=== PATIENT | female | born 1975 | race Caucasian/White ===

== ENCOUNTER 2019-08-13 15:10 | Emergency (ER) | payer SELFPAY ==
[2019-08-13 16:24] LABS: ABSOLUTE BASOPHILS # (AUTO) 0.1 10^3/uL (0.0-0.2); ABSOLUTE EOSINOPHILS # (AUTO) 0.2 10^3/uL (0.0-0.6); ABSOLUTE NEUT (AUTO) 8.8 10^3/uL (1.7-8.2); BASOPHILS % (AUTO) 0.4 % (0-2); EOSINOPHILS % (AUTO) 1.5 % (0-6); HEMOGLOBIN 12.6 g/dL (12.0-15.5); LYMPHOCYTES % (AUTO) 22.7 % (13-45); MEAN CORPUSCULAR HEMOGLOBIN 25.4 pg (27.0-33.4); MEAN CORPUSCULAR HGB CONC 32.3 g/dL (32.0-36.0); MEAN CORPUSCULAR VOLUME 79 fl (80-97); MONOCYTES % (AUTO) 7.6 % (3-13); PLATELET COUNT 344 10^3/uL (150-450); RED BLOOD COUNT 4.96 10^6/uL (3.72-5.28); RED CELL DISTRIBUTION WIDTH 17.5 % (11.5-14.0); SEGMENTED NEUTROPHILS % (AUTO) 67.8 % (42-78); TOTAL CELLS COUNTED % (AUTO) 100 %
[2019-08-13 16:28] LABS: APPEARANCE,URINE SLIGHTLY-CLOUDY; BILIRUBIN,URINE NEGATIVE (NEGATIVE); COLOR,URINE YELLOW; GLUCOSE, URINE NEGATIVE (NEGATIVE); KETONES,URINE NEGATIVE (NEGATIVE); LEUKOCYTE ESTERASE,URINE NEGATIVE (NEGATIVE); NITRITE,URINE NEGATIVE (NEGATIVE); PROTEIN,URINE NEGATIVE (NEGATIVE); URINE SPECIFIC GRAVITY 1.006; UROBILINOGEN,URINE NEGATIVE mg/dL (<2.0)
[2019-08-13 16:38] LABS: ALKALINE PHOSPHATASE 75 U/L (38-126); ANION GAP 11 (5-19); ASPARTATE AMINO TRANSFERASE 20 U/L (14-36); BILIRUBIN,DIRECT 0.1 mg/dL (0.0-0.4); BILIRUBIN,TOTAL 0.2 mg/dL (0.2-1.3); BLOOD UREA NITROGEN 8 mg/dL (7-20); CALCIUM 10.1 mg/dL (8.4-10.2); CARBON DIOXIDE 23 mmol/L (22-30); CHLORIDE 104 mmol/L (98-107); GLUCOSE 143 mg/dL (75-110); POTASSIUM 4.3 mmol/L (3.6-5.0)
[2019-08-13] MEDS ORDERED: NORMAL SALINE 1000 ML 1,000 ML IV ONE (16:40)
[2019-08-13] MEDS ORDERED: PROMETHAZINE HCL INJ 25 MG/1 ML VIAL IV ONE (16:40)
--- NOTE | 2019-08-13 17:54 | ER Document Report ---
ED General - General Chief Complaint: Nausea/Vomiting Stated Complaint: VOMITING Time Seen by Provider: 08/13/19 16:24 - HPI Notes: Patient is a 43-year-old female who presents to the emergency department for evaluation of nausea and vomiting. She states she is had 1-3 episodes of emesis daily. Is been nonbloody, nonbilious. Urinating normally. Normal bowel movements. She states her last menstrual period was sometime in May, took a home test the other day which was in fact positive. She has not yet followed up with OB, she currently does not have an insurance. She denies any abdominal pain. This is her fifth . She had 2 live births, but did lose 1 child at 2 months of age secondary to SIDS. - Related Data Home Medications: Suboxone, Adderral, Klonopin -patient is currently out of all of these medicines Past Medical History - General Information source: Patient - Social History Smoking Status: Current Every Day Smoker Drug Abuse: Other - Former prescription drug abuse, has been clean for 2 years Family History: Reviewed & Not Pertinent Patient has suicidal ideation: No Patient has homicidal ideation: No Psychiatric Medical History: Reports: Hx Anxiety, Hx Attention Deficit Hyperactivity Disorder, Hx Depression Review of Systems - Review of Systems Constitutional: No symptoms reported EENT: No symptoms reported Cardiovascular: No symptoms reported Respiratory: No symptoms reported Gastrointestinal: See HPI Genitourinary: No symptoms reported Female Genitourinary: See HPI Musculoskeletal: No symptoms reported Skin: No symptoms reported Neurological/Psychological: No symptoms reported Physical Exam - Vital signs Vitals: Temp Pulse Resp BP Pulse Ox 98.8 F 75 18 188/99 H 100 08/13/19 15:17 08/13/19 15:17 08/13/19 15:17 08/13/19 15:17 08/13/19 15:17 - Notes Notes: Vital signs reviewed, please refer to chart. Head is normocephalic, atraumatic. Pupils equal round, reactive to light. Neck is supple without meningismus. Heart is regular rate and rhythm. Lungs are clear to auscultation bilaterally. Abdomen is soft, nontender, normoactive bowel sounds throughout. Extremities without cyanosis, clubbing. Posterior calves are nontender. Peripheral pulses are equal. Skin is warm and dry. Patient is awake, alert, neurological exam is nonfocal. Course - Re-evaluation Re-evalutation: 08/13/19 17:53 Patient presents emergency department for evaluation. She is in fact , urine test confirms this. She has no vaginal bleeding. She has no pelvic pain. She has no other concerning symptoms. At this point I will refer her on to OB in regards to that. Despite her vomiting, she does not seem to have any significant electrolyte abnormalities. She was treated here with IV fluids and Phenergan. I will send her home with a prescription for Phenergan and close follow-up. She is to return to the ED with worsening. 08/13/19 18:18 Patient is feeling improved. I was notified by nursing that her blood pressure still remained high. I discussed this with the patient. She has a history of blood pressures that have been elevated in the past, states this is not abnormal for her. I strongly encouraged her to follow-up in regards to this as well. She voiced understanding. She is Lino taking [employer] brand vitamins at home, she is reminded to take them regularly. Otherwise will refer to on- call OB, return with worsening. - Vital Signs Vital signs: Temp Pulse Resp BP Pulse Ox 98.8 F 75 18 188/99 H 100 08/13/19 15:17 08/13/19 15:17 08/13/19 15:17 08/13/19 15:17 08/13/19 15:17 - Laboratory Result Diagrams: 08/13/19 16:01 08/13/19 16:01 Laboratory results interpreted by me: 08/13/19 08/13/19 08/13/19 16:01 16:01 16:01 WBC 13.0 H MCV 79 L MCH 25.4 L RDW 17.5 H Absolute Neuts (auto) 8.8 H Glucose 143 H Urine HCG, Qual POSITIVE H Discharge - Discharge Clinical Impression: Nausea and vomiting during prior to 22 weeks gestation Condition: Stable Disposition: HOME, SELF-CARE Instructions: Vomiting ([facility]), ([facility]) Additional Instructions: Please take vitamins daily as discussed. Take Phenergan as needed for severe nausea, watch for dizziness and drowsiness with this medication. You need to follow-up with OB, call our on-call gristmill operator or the OB of your choice for appointment. Your blood pressure was elevated here today. This may need treated as well. Please discuss this with OB/primary care. If you develop vaginal bleeding, increased vomiting, abdominal pain, or new new concerning symptoms, return immediately to the emergency department for evaluation.
[2019-08-13 18:51] VITALS: BP 144/79
== END 2019-08-13 18:52 | disposition home or self-care (01) ==
LOC: ER 15:10
DX: O21.9 Vomiting of pregnancy, unspecified (principal); O99.330 Smoking (tobacco) complicating pregnancy, unspecified trimester; Z3A.00 Weeks of gestation of pregnancy not specified; Z79.899 Other long term (current) drug therapy; Z86.59 Personal history of other mental and behavioral disorders
CPT/HCPCS: 36415; 85025; 81025; 80053; 81001; J2550; J7030; 96361; 96374; 99284

== ENCOUNTER 2019-08-18 23:34 | Emergency (ER) | payer SELFPAY ==
[2019-08-18 23:39] VITALS: BP 157/99
== END 2019-08-19 01:21 | disposition left against medical advice (07) ==
LOC: ER 23:34
DX: Z53.21 Procedure and treatment not carried out due to patient leaving prior to being seen by health care provider (principal)

== ENCOUNTER 2019-08-19 07:03 | Emergency (ER) | payer SELFPAY ==
[2019-08-19 08:45] LABS: APPEARANCE,URINE TURBID; BILIRUBIN,URINE NEGATIVE (NEGATIVE); COLOR,URINE YELLOW; GLUCOSE, URINE >=500 mg/dL (NEGATIVE); KETONES,URINE NEGATIVE (NEGATIVE); LEUKOCYTE ESTERASE,URINE MODERATE (NEGATIVE); NITRITE,URINE POSITIVE (NEGATIVE); PROTEIN,URINE NEGATIVE (NEGATIVE); URINE SPECIFIC GRAVITY 1.008; UROBILINOGEN,URINE NEGATIVE mg/dL (<2.0)
[2019-08-19 09:02] LABS: URINE AMPHETAMINES SCREEN NEGATIVE; URINE BARBITURATES SCREEN NEGATIVE; URINE BENZODIAZEPINES SCREEN NEGATIVE; URINE COCAINE SCREEN NEGATIVE; URINE MARIJUANA (THC) SCREEN NEGATIVE; URINE METHADONE SCREEN NEGATIVE; URINE PHENCYCLIDINE SCREEN NEGATIVE
--- NOTE | 2019-08-19 09:04 | ER Document Report ---
ED General <MARIA VICTORIA GOODE - Last Filed: 08/19/19 12:28> - General TRAVEL OUTSIDE OF THE [place] IN LAST 30 DAYS: No - Related Data Home Medications: suboxone <VENKATA READ - Last Filed: 08/23/19 00:13> - General Chief Complaint: Drug Abuse Stated Complaint: DETOX Time Seen by Provider: 08/19/19 09:03 - HPI Notes: Patient presented a few hours earlier but left prior to being seen and is now back. Also, ED visit note 08-13-19 from a few pt presented out of her "Suboxone, Adderral, Klonopin" but had left p/t dispo. Reports is 13.5 EGA per dates and is fairly sure about her LMP, has history of previous . she denies benzo use for over a week now (out of rx'd Klonopin 10 d/a and has not taken BZD from any other sources.") But, says despite this fact when she tried to go to 1 of the facilities we recommended a drug screen was +bzd "so they told her she was not eligible for that program". Patient says she also tried [facility], but says they will not see her because they do not have a Suboxone program, and B/C she is . (Please see mental health RN note today which I agree with as I was present during her interview and talk with the patient.) She just feels very anxious and does not like withdrawing from Suboxone, and just needs us to give her something to get through this. hasnt noticed interruptions in usual movement. she is now living here with her /father of baby who is with her have moved from [place] and therefore out of her Suboxone for almost a week now. She denies any n/v, severe diarrhea. She denies any trouble breathing no fever chills sweats no vaginal discharge or VB. No pelvic pain no back pain, no urinary symptoms, pain with sex or recent vaginal intercourse. Patient denies any abdominal or other trauma. (VENKATA READ) - Related Data Allergies/Adverse Reactions: morphine Allergy (Verified 08/19/19 07:10) sucralfate [From Carafate] Allergy (Verified 08/19/19 07:10) Past Medical History - General Information source: Patient, [facility] Records - Social History Smoking Status: Current Every Day Smoker Drug Abuse: Heroin - Denies, Marijuana - Denies, Methamphetamine - Denies, Prescription drugs. denies: Cocaine - Denies Lives with: Spouse/Significant other Family History: Reviewed & Not Pertinent Patient has suicidal ideation: No Patient has homicidal ideation: No Psychiatric Medical History: Reports: Hx Anxiety, Hx Attention Deficit Hyperactivity Disorder, Hx Depression <VENKATA READ - Last Filed: 08/23/19 00:13> Review of Systems - Review of Systems Constitutional: See HPI, Diaphoresis, Malaise, Weakness. denies: Chills, Fever EENT: denies: Double vision, Nose pain, Nose congestion, Sinus pressure, Throat pain, Difficulty swallowing, Mouth swelling, Dental problem Cardiovascular: No symptoms reported, See HPI, Lightheaded. denies: Orthopnea, Dyspnea, Syncope, Dizziness, Edema, Paroxysmal Nocturnal Dysp Respiratory: No symptoms reported Gastrointestinal: No symptoms reported Genitourinary: No symptoms reported Female Genitourinary: No symptoms reported Musculoskeletal: No symptoms reported. denies: Back pain, Leg swelling, Ankle swelling Skin: denies: Lesions, Lumps, Rash Neurological/Psychological: Anxiety. denies: Confusion, Sensory change, Homicidal ideation, Gait changes, Paralysis, Seizure, Headaches, Speech impairment, Numbness, Tingling, Tremor <VENKATA READ - Last Filed: 08/23/19 00:13> Physical Exam - Vital signs Interpretation: Normal - General General appearance: Appears well, Alert - HEENT Head: Normocephalic, Atraumatic Eyes: Normal Pupils: PERRL - Respiratory Respiratory status: No respiratory distress Chest status: Nontender Breath sounds: Normal Chest palpation: Normal - Cardiovascular Rhythm: Regular Heart sounds: Normal auscultation Murmur: No - Abdominal Inspection: Normal, Gravid female - Umbilical to pubic symphysis distance protuberance consistent with patient's reported dates. TAUS: Performed at bedside with patient and father baby and nurse. No free fluid in the pelvis. Did separately see two fetuses, each with heart rate around 150s. Intermittent movement. Twin intrauterine gestation identified. Tolerated exam well Distension: No distension Bowel sounds: Normal Tenderness: Nontender Organomegaly: No organomegaly - Back Back: Normal, Nontender - Extremities General upper extremity: Normal inspection, Nontender, Normal color, Normal ROM, Normal temperature General lower extremity: Normal inspection, Nontender, Normal color, Normal ROM, Normal temperature, Normal weight bearing. No: Kenisha's sign - Neurological Neuro grossly intact: Yes Cognition: Normal Orientation: AAOx4 [place] Coma Scale Eye Opening: Spontaneous [place] Coma Scale Verbal: Oriented Karen Coma Scale Motor: Obeys Commands Karen Coma Scale Total: 15 Speech: Normal Motor strength normal: LUE, RUE, LLE, RLE Sensory: Normal - Psychological Associated symptoms: Normal affect, Normal mood - Skin Skin Temperature: Warm Skin Moisture: Dry Skin Color: Normal <VENKATA READ - Last Filed: 08/23/19 00:13> - Vital signs Vitals: Temp Pulse Resp BP Pulse Ox 98.2 F 95 22 H 166/84 H 100 08/19/19 07:10 08/19/19 07:10 08/19/19 07:10 08/19/19 07:10 08/19/19 07:10 Course - Laboratory Result Diagrams: 08/19/19 08:59 <MARIA VICTORIA GOODE - Last Filed: 08/19/19 12:28> - Laboratory Result Diagrams: 08/19/19 08:59 <VENKATA READ - Last Filed: 08/23/19 00:13> - Re-evaluation Re-evalutation: 08/23/19 00:08 Performed trans-abdominal ultrasound see exam description above work with mental health nurse to explained to patient our capabilities here that I was willing to give her some symptom treatment that I very much recommended she continue to refrain from benzodiazepines since if she had had not had any for over 10 days that we do not see any evidence of benzodiazepine withdrawal here which would be worrisome. Her vital signs remained within normal limits. She continued to dem and immediate disposition despite multiple staff members assuring her we were talking to the psychiatrist about any recommendations, and then for me to give her very very short course of any prescriptions. Psychiatrist though did prescribe short course of BuSpar only which I agreed to and wrote for patient. I checked the category it was B. She had no vomiting or nausea or va that she left despite us asking her for just a little more time before the BuSpar prescription was written on my dispel packet was printed. She had agreed and continued to report that she was not planning on doing any benzos or other substances and wanted to just get through this part of the withdrawal and the was wanted by both of them. She says she would make sure she was taking vitamins and arrange regular OB visits return for any vaginal bleeding earlier on our discussions. (VENKATA READ) - Vital Signs Vital signs: Temp Pulse Resp BP Pulse Ox 97.8 F 95 23 H 146/92 H 91 L 08/19/19 07:59 08/19/19 07:10 08/19/19 09:01 08/19/19 09:01 08/19/19 09:01 - Laboratory Laboratory results interpreted by me: 08/19/19 08/19/19 08:30 08:59 Glucose 151 H Beta HCG, Quant 590859.00 H Urine Glucose (UA) >=500 H Urine Nitrite POSITIVE H Ur Leukocyte Esterase MODERATE H Discharge <MARIA VICTORIA GOODE - Last Filed: 08/19/19 12:28> <VENKATA READ - Last Filed: 08/23/19 00:13> - Discharge Clinical Impression: Opioid withdrawal, Twin gestation in first trimester Qualifiers: Multiple gestation type: unable to determine placenta and amniotic sac number Qualified Code(s): O30.091 - Twin , unable to determine number of placenta and number of amniotic sacs, first trimester Condition: Fair Disposition: HOME, SELF-CARE Additional Instructions: You have been evaluated by both medical and behavioral health providers while in the emergency department. You have been cleared from both acute medical and psychiatric services. Being on a Suboxone maintenance program typically requires weening with the oversight of a physician. It has almost been a week since your reported last use, you have gone through the worst of the withdrawal and it may be more beneficial to not get back on a program. You have follow up with a local outpatient treatment facility and should have AGRICULTURAL EQUIPMENT SALESPERSON follow ups for . Withdrawal Your symptoms are caused by withdrawal. After a period of frequent use (even drug maintenance with Suboxone), the brain and body are changed. When you quit or reduce your use, the nervous system becomes unstable. Withdrawal symptoms can start a few hours after your last use, but sometimes don't begin until a couple of days later. Symptoms can include shakiness, sweating, insomnia, nausea, vomiting, fearfulness, hallucinations, and seizures. In addition to the acute effects of withdrawal, we often have to deal with the medical effects. These problems often include dehydration, stomach irritation, diarrhea irritability and others. Treatment for withdrawal includes vitamins and fluids. You need to be with someone who can help if symptoms become severe. Many patients can withdraw at home. Admission to the hospital or a detox facility may be necessary if withdrawal symptoms are severe and uncontrollable. Abstaining from substances is the only effective long-term treatment. If you start using again, you may not be able to control yourself after the use. Treatment programs are available. In addition, many individuals benefit from Narcotics Anonymous or other support groups available through your counselor or sabianist plastics fabrication supervisor. There are support groups for friends and family members. Go to the emergency room if you develop persistent vomiting, severe abdominal pain, fever, shortness of breath, hallucinations, uncontrollable tremors, or seizures. Follow Up Plan: You are being provided a prescription for Buspar 10 MG twice a day for anxiety/calming effect/depression/sleep. You should take this medication as prescribed. You should not restart Klonopin since you reported last use 2 weeks ago. You have been scheduled with [facility] on Thursday08/22/19 at 0830 for Intake and then Thursday08/23/19 at 0830 to see the doctor. Coordinate with them regarding your plan for opiate abstinence. Ensure all treating providers are aware of your as certain medications can be harmful to the baby. If your symptoms persist or worsen you should contact your physician immediately, utilize mobile crisis or return to the emergency department. Prescriptions: Buspirone HCl [Buspar 10 mg Tablet] 10 mg PO BID 5 Days #10 tablet
[2019-08-19 10:12] LABS: ALBUMIN 4.2 g/dL (3.5-5.0); ALKALINE PHOSPHATASE 71 U/L (38-126); ANION GAP 9 (5-19); ASPARTATE AMINO TRANSFERASE 20 U/L (14-36); BILIRUBIN,DIRECT 0.1 mg/dL (0.0-0.4); BILIRUBIN,TOTAL 0.2 mg/dL (0.2-1.3); BLOOD UREA NITROGEN 8 mg/dL (7-20); CALCIUM 10.2 mg/dL (8.4-10.2); CARBON DIOXIDE 25 mmol/L (22-30); CHLORIDE 104 mmol/L (98-107); GLUCOSE 151 mg/dL (75-110); TOTAL PROTEIN 7.5 g/dL (6.3-8.2)
[2019-08-19 10:53] VITALS: BP 146/92
--- NOTE | 2019-08-19 13:47 | PSYCHOLOGICAL NOTE ---
Psych Note - Psych Note Date seen by psych provider: 08/19/19 Time seen by psych provider: 11:09 Psych Note: Presenting Problem: Suboxone Withdrawal, no use since Thursday, Went with Attending ED Physician to speak with patient. She identified she is 13 weeks and 6 days . She reported she was prescribed Klonopin 1MG BID for the past year but only took it at night, has not had any in 2 weeks. She reported she had been on a Suboxone Program for 2 years, last dosing was 8MG/2 daily, last dose was Thursday. She reported Withdrawal for the past 3-4 days, specifically mentioned diarrhea so much that she now has hemorrhoids. She reported [facility] won't take her, went to [facility] this AM but her UDS was positive for Benzos so they would not allow her into program and still declined inpatient detox. She agreed she would like immediate symptom relief. She was made aware it may be difficult due to her being and also that there would be discomfort because withdrawal symptoms are to be expected. She wants to get into programming, is having difficulty and would like symptoms relief. Please note patient UDS in ED was positive for Opiates not Benzos (she reported [facility] would not provide treatment due to being positive for Benzos). Inquired about her positive Opiate UDS in ED. She maintained she has not had anything since last Suboxone on Thursday. She asked why she was positive for Benzos at [facility] but Opiates here. Diagnosis: Opioid Withdrawal Hx of Opioid Use Per patient report had been on Suboxone Maintenance Program for 2 years Medication recommendations made by the psychiatric medication provider, Dr. Birgit MD., includes: Add Buspar 10 MG twice a day for anxiety/calming effect/depression/sleep Stay off the Klonopin since per patient report it has been 2 week or longer It has almost been a week since patient report of having Suboxone so should stay off Impression/Plan: Patient is cleared from acute psychiatric services. Scheduled outpatient follow up with [facility] Thursday08/22/19 at 0830 for Intake and Thursday08/23/19 at 0830 with the doctor. Patient provided with documentation of appointment dates and times. [facility] provided patient with the [facility] resource sheet which highlighted [facility] for assistance with voluntary inpatient medical detox which she declined yesterday and today, also listed [facility] and [facility] for outpatient programming. Consulted with Dr. Corey regarding the man agement and care of patient. ED physician in agreement with recommendations. Patient ended up leaving AMA so did not receive prescription which she was informed she would be getting.
== END 2019-08-19 12:39 | disposition home or self-care (01) ==
LOC: ER 07:03
DX: O99.321 Drug use complicating pregnancy, first trimester (principal); F11.23 Opioid dependence with withdrawal; O30.001 Twin pregnancy, unspecified number of placenta and unspecified number of amniotic sacs, first trimester; O26.891 Other specified pregnancy related conditions, first trimester; R61 Generalized hyperhidrosis; R53.1 Weakness; O26.811 Pregnancy related exhaustion and fatigue, first trimester; O99.331 Smoking (tobacco) complicating pregnancy, first trimester; F17.200 Nicotine dependence, unspecified, uncomplicated; O99.341 Other mental disorders complicating pregnancy, first trimester; F41.9 Anxiety disorder, unspecified; Z3A.00 Weeks of gestation of pregnancy not specified; Z88.6 Allergy status to analgesic agent; Z88.5 Allergy status to narcotic agent; Z88.8 Allergy status to other drugs, medicaments and biological substances
CPT/HCPCS: 36415; 80053; 80307; 81001; 84702; 99284